=== PATIENT | female | born 2000 | race Caucasian/White ===

== ENCOUNTER 2022-01-07 01:50 | Emergency (ER) | payer MEDICAID ==
[~2022-01-07] VITALS: Ht 167.6 cm; Wt 113.6 kg
[2022-01-07 01:55] VITALS: TEMP 97.4
[2022-01-07 02:45] LABS: BASO # 0.1 K/mm3 (0.0-0.2); BASO % 0.3 % (0.0-2.0); EOS # 0.1 K/mm3 (0.0-0.7); EOS % 0.3 % (0.0-4.0); GRAN # 14.8 K/mm3 (1.4-6.5); GRAN % 74.6 % (42.2-75.2); HEMATOCRIT 39.1 % (35.0-45.0); HEMOGLOBIN 13.4 g/dl (12.0-15.0); LYMPH # 3.5 K/mm3 (1.2-3.4); LYMPH % 17.4 % (20.0-51.0); MEAN CELL VOLUME 82 fl (80.0-95.0); MEAN CORPUSCULAR HEMOGLOBIN 28 pg (26-32); MEAN CORPUSCULAR HGB CONC 34 g/dl (33.0-37.0); MEAN PLATELET VOLUME 10.3 fl (7.4-10.4); MONO # 1.4 K/mm3 (0.1-0.6); MONO % 6.9 % (1.7-9.3); PLATELET COUNT 357 K/mm3 (130-400); RED BLOOD COUNT 4.76 M/mm3 (4.10-5.30); REDCELL DISTRIBUTION WIDTH-CV 13.3 % (11.5-14.5)
[2022-01-07 03:03] LABS: BILIRUBIN,TOTAL 0.8 mg/dL (0.2-1.2); CALCIUM 9.4 mg/dL (8.4-10.2); CREATININE, serum 0.88 mg/dL (0.57-1.11); POTASSIUM 4.1 mmol/L (3.5-4.5); TOTAL PROTEIN 8.4 gm/dL (6.2-8.1)
[2022-01-07 03:34] LABS: COLLECTION METHOD CLEAN CATCH
[2022-01-07 03:41] LABS: MUCOUS Present (NOT PRESENT); PH 7 (5-8); SQUAMOUS EPITHELIAL 0-2 /hpf (0-10); URINE APPEARANCE Hazy (CLEAR/HAZY); URINE BACTERIA None Seen /hpf (NONE SEEN); URINE BILIRUBIN Negative (NEGATIVE); URINE BLOOD 1+ (NEGATIVE); URINE COLOR Yellow (YELLOW); URINE GLUCOSE Negative (NEGATIVE); URINE KETONE 1+ (NEGATIVE); URINE LEUKOCYTE ESTERASE Negative (NEGATIVE); URINE NITRATE Negative (NEGATIVE); URINE PROTEIN(semi-quant) Negative (NEGATIVE); URINE RBC 0-2 /hpf (0-2); URINE UROBILINOGEN Negative (NEGATIVE)
[2022-01-07] MEDS ORDERED: DOXYCYCLINE 10100 MG PO ×3 (04:52→05:11)
[2022-01-07] MEDS ORDERED: ZOFRAN ODT4 MG PO ×3 (04:52→05:11)
[2022-01-07] MEDS ORDERED: FLAGYL500 MG PO ×3 (04:52→05:11)
[2022-01-07 05:10] VITALS: BP 94/72; PULSE 106
== END 2022-01-07 05:10 | disposition home or self-care (01) ==
LOC: COL.ER 01:50
PROVIDERS: Emergency Medicine
DX: A54.02 Gonococcal vulvovaginitis, unspecified (principal); Z28.310 Unvaccinated for COVID-19; Z32.02 Encounter for pregnancy test, result negative
CPT/HCPCS: J0696; J2270; J7030; Q9967

== ENCOUNTER 2023-11-16 18:35 | Emergency (ER) | payer MEDICAID ==
[~2023-11-16] VITALS: Ht 167.6 cm; Wt 93.2 kg
[~2023-11-16 18:35] MED LIST: DOXYCYCLINE 10100 MG PO; FLAGYL500 MG PO; ZOFRAN ODT4 MG PO
[2023-11-16 19:48] LABS: COLLECTION METHOD CLEAN CATCH
[2023-11-16 19:58] LABS: URINE APPEARANCE CLOUDY (CLEAR/HAZY); URINE BLOOD NEGATIVE (NEGATIVE); URINE COLOR YELLOW (YELLOW); URINE GLUCOSE NEGATIVE (NEGATIVE); URINE KETONE TRACE (NEGATIVE); URINE NITRATE NEGATIVE (NEGATIVE); URINE PROTEIN(semi-quant) NEGATIVE (NEGATIVE)
[2023-11-16] MEDS ORDERED: CEFTIN500 MG PO (20:03)
[2023-11-16] MEDS ORDERED: cefTRIAXone 500 MG,Lidocaine PF 1% 1 ML IM ONE (20:15)
[2023-11-16 20:16] VITALS: BP 129/71; PULSE 81; TEMP 97.6
[2023-11-17] MEDS ORDERED: ZITHROMAX500 M2 PO (15:49)
== END 2023-11-16 20:18 | disposition home or self-care (01) ==
LOC: COL.ER 18:35
PROVIDERS: Nurse Practitioner
DX: N39.0 Urinary tract infection, site not specified (principal)
CPT/HCPCS: J0696